=== PATIENT | female | born 1990 | race Caucasian/White ===

== ENCOUNTER 2022-05-18 19:15 | Emergency (ER) | payer OTHER ==
[2022-05-18 19:19] VITALS: BP 106/73; PULSE 72; RESP 18; TEMP 97.5; BMI 29.9
[2022-05-18] MEDS ORDERED: FAMOTIDINE 20 MG/50 ML IVPB 20 MG/50 ML MG IVPB ONE ×2 (19:53→20:13)
[2022-05-18] MEDS ORDERED: ACETAMINOPHEN 1000 MG/100 ML BAG IVPB ONE (19:53)
[2022-05-18] MEDS ORDERED: SODIUM CHLORIDE 1,000 ML IV STA (19:53)
[2022-05-18] MEDS ORDERED: ACETAMINOPHEN INJECTION 100 ML IVPB ONE (20:13)
[2022-05-18 21:30] LABS: BASO % 0.6 % (0-2.0); EOS % 4.6 % (0-4.5); HEMATOCRIT 41.1 % (32.4-45.2); HEMOGLOBIN 13.5 GM/dL (10.7-15.3); LYMPH % 28.9 % (8-40); MCH 28.7 pg (25.7-33.7); MCHC 32.8 g/dl (32.0-36.0); MEAN CELL VOLUME 87.6 fl (80-96); MONO % 5.5 % (3.8-10.2); NEUT % 60.4 % (42.8-82.8); PLATELET COUNT 260 10^3/uL (134-434); RBC 4.69 M/mm3 (3.60-5.2); RDW 13.6 % (11.6-15.6); WHITE BLOOD COUNT 9.8 K/mm3 (4.0-10.0)
[2022-05-18 21:39] LABS: URINE APPEARANCE CLEAR; URINE BILIRUBIN NEGATIVE (NEGATIVE); URINE COLOR YELLOW; URINE GLUCOSE (UA) NEGATIVE (NEGATIVE); URINE KETONE NEGATIVE (NEGATIVE); URINE LEUK ESTERASE NEGATIVE (NEGATIVE); URINE NITRITE NEGATIVE (NEGATIVE); URINE PROTEIN NEGATIVE (NEGATIVE); URINE UROBILINOGEN 0.2 mg/dL (0.2-1.0)
[2022-05-18 21:55] LABS: CHLORIDE 103 mmol/L (98-107); SODIUM 142 mmol/L (136-145)
[2022-05-18 21:57] LABS: CALCIUM 9.5 mg/dL (8.5-10.1)
[2022-05-18 21:58] LABS: ALBUMIN 3.7 g/dl (3.4-5.0); ANION GAP 9 MMOL/L (8-16); BLOOD UREA NITROGEN 9.1 mg/dL (7-18); CO2 31 mmol/L (21-32); GLUCOSE,RANDOM 85 mg/dL (74-106); LIPASE 96 U/L (73-393)
[2022-05-18 22:01] LABS: CREATININE 0.6 mg/dL (0.55-1.3); SGOT/AST 19 U/L (15-37); SGPT/ALT 21 U/L (13-61)
[2022-05-18 22:02] LABS: BILIRUBIN,TOTAL 0.3 mg/dL (0.2-1); TOT PROT 6.9 g/dl (6.4-8.2)
[2022-05-18 22:04] LABS: ALK PHOS 53 U/L (45-117)
== END 2022-05-19 00:12 | disposition home or self-care (01) ==
LOC: JER 19:15
DX: R10.84 Generalized abdominal pain (principal)
CPT/HCPCS: 36415; 74176-TC; 80053; 81003; 83605; 83690; 84703; 85025; 85651; 86140; 87086; 99285-25

== ENCOUNTER 2023-08-01 20:53 | Emergency (ER) | payer OTHER ==
[2023-08-01 21:09] VITALS: RESP 18; BMI 31.6
[2023-08-01] MEDS ORDERED: METOCLOPRAMIDE HCL INJECTION 10 MG/2 ML VIAL ONE (21:40)
[2023-08-01] MEDS ORDERED: ACETAMINOPHEN INJECTION 100 ML IVPB ONE (21:41)
[2023-08-01 22:11] LABS: BASO % 0.6 % (0-2.0); EOS % 2.7 % (0-4.5); HEMATOCRIT 41.1 % (32.4-45.2); HEMOGLOBIN 13.9 GM/dL (10.7-15.3); LYMPH % 22.9 % (8-40); MCH 29.8 pg (25.7-33.7); MCHC 33.8 g/dl (32.0-36.0); MEAN PLT VOLUME 7.5 fl (7.5-11.1); MONO % 3.8 % (3.8-10.2); PLATELET COUNT 243 10^3/uL (134-434); RBC 4.67 M/mm3 (3.60-5.2); RDW 13.2 % (11.6-15.6); WHITE BLOOD COUNT 10.7 K/mm3 (4.0-10.0)
[2023-08-01] MEDS: ACETAMINOPHEN 1000 MG/100 ML BAG IVPB ONE (22:12)
[2023-08-01] MEDS: METOCLOPRAMIDE HCL INJECTION 10 MG/2 ML VIAL IVPUSH ONE (22:13)
[2023-08-01] MEDS: LACTATED RINGERS SOLUTION 1,000 ML/1,000 ML INFUS.BAG IV SCH (22:13)
[2023-08-01 22:32] LABS: POTASSIUM 4.1 mmol/L (3.5-5.1)
[2023-08-01 22:34] LABS: CALCIUM 9.6 mg/dL (8.5-10.1)
[2023-08-01 22:35] LABS: ALBUMIN 3.8 g/dl (3.4-5.0)
[2023-08-01 22:38] LABS: CREATININE 0.8 mg/dL (0.55-1.3); PHOSPHOROUS 3.7 mg/dL (2.5-4.9)
[2023-08-01 22:40] LABS: TOT PROT 7.2 g/dl (6.4-8.2)
[2023-08-01 22:54] LABS: BLOOD UREA NITROGEN 7.9 mg/dL (7-18)
[2023-08-01 23:01] LABS: BILIRUBIN,TOTAL 0.5 mg/dL (0.2-1)
[2023-08-01 23:46] VITALS: BP 122/76; PULSE 70; TEMP 98
== END 2023-08-01 23:46 | disposition home or self-care (01) ==
LOC: JER 20:53
PROC: 3E033NZ Introduction of Analgesics, Hypnotics, Sedatives into Peripheral Vein, Percutaneous Approach (ICD-10-PCS; principal; 2023-08-01)
PROC: 3E033GC Introduction of Other Therapeutic Substance into Peripheral Vein, Percutaneous Approach (ICD-10-PCS; 2023-08-01)
DX: R51.9 Headache, unspecified (principal); R11.0 Nausea; R42 Dizziness and giddiness; R63.0 Anorexia; Z20.822 Contact with and (suspected) exposure to COVID-19
CPT/HCPCS: 0241U-QW; 36415; 80053; 83735; 84100; 84439; 84443; 84703; 85025; 99284-25; J0131

== ENCOUNTER 2023-08-18 22:35 | Emergency (ER) | payer OTHER ==
[2023-08-18 22:39] VITALS: BP 111/76; PULSE 83; RESP 18; TEMP 97.9; BMI 31.6
== END 2023-08-19 00:24 | disposition home or self-care (01) ==
LOC: JERFT 22:35 → JER 22:35
DX: F41.9 Anxiety disorder, unspecified (principal); G47.9 Sleep disorder, unspecified; F17.213 Nicotine dependence, cigarettes, with withdrawal; Z20.822 Contact with and (suspected) exposure to COVID-19
CPT/HCPCS: 0241U-QW; 99283-25

== ENCOUNTER 2024-02-12 19:37 | Emergency (ER) | payer OTHER ==
[2024-02-12 19:54] VITALS: BP 116/69; PULSE 67; RESP 18; TEMP 98.1; BMI 32.9
[2024-02-12] MEDS ORDERED: IBUPROFEN 400 MG TABLET (FP) PO ONE (20:28)
[2024-02-12] MEDS ORDERED: ACETAMINOPHEN 325 MG TABLET (FP) ONE (20:28)
[2024-02-12] MEDS: IBUPROFEN 400 MG TABLET (FP) PO ONE (20:29)
[2024-02-12] MEDS: ACETAMINOPHEN 325 MG TABLET (FP) PO ONE (20:29)
== END 2024-02-12 21:53 | disposition home or self-care (01) ==
LOC: JERFT 19:37
DX: M79.672 Pain in left foot (principal)
CPT/HCPCS: 73630-TC-LT; 99283-25

== ENCOUNTER 2024-02-17 19:37 | Emergency (ER) | payer OTHER ==
[2024-02-17 19:50] VITALS: BP 116/84; PULSE 70; RESP 18; TEMP 98.4; BMI 32.9
[2024-02-17 23:04] LABS: HIV INTERPRETATION NEGATIVE (NEGATIVE)
== END 2024-02-17 22:26 | disposition home or self-care (01) ==
LOC: JERFT 19:37
DX: Z11.3 Encounter for screening for infections with a predominantly sexual mode of transmission (principal)
CPT/HCPCS: 36415; 84703; 86695; 86696; 86780; 86803; 87389; 87491; 87591; 87661; 99283-25